=== PATIENT | female | born 1985 | race Caucasian/White ===

== ENCOUNTER 2021-02-06 07:35 | Emergency (ER) | payer OTHER ==
[~2021-02-06] VITALS: Ht 152.4 cm; Wt 81.7 kg
[~2021-02-06 07:35] MED LIST: CIPROFLOXACIN500 M1 PO; CLONAZEPAM0.25 MG PO; HYDROCODON-ACE1 EAC7 PO; NEURONTIN 300300 M1 PO; SENOKOT-S1 TA1 PO; TRAMADOL 50 MG50 MG PO; ZOFRAN ODT4 MG PO; ZOFRAN4 MG PO
[2021-02-06] MEDS ORDERED: CLONAZEPAM 0.50.5 M1 PO (07:53)
[2021-02-06 08:23] LABS: ABSOLUTE EOSINOPHILS 0.1 thou/uL (0.0-0.7); ABSOLUTE LYMPHOCYTES 1.7 thou/uL (0.8-5.3); ABSOLUTE MONOCYTES 0.3 thou/uL (0.0-1.2); ABSOLUTE NEUTROPHILS 1.9 thou/uL (1.6-8.1); EOSINOPHILS 1.5 %; HEMATOCRIT 41.8 % (37.0-47.0); LYMPHOCYTES 42.6 %; MCH 31.9 pg (26.0-34.0); MCHC 33.5 g/dL (28.0-37.0); MCV 95.1 fL (80.0-100.0); NUCLEATED RBCS 0 /100WBC; PLATELET COUNT* 220 thou/uL (150-400); POLYS 47.9 %; RDW-CV 13.8 % (10.5-14.5)
[2021-02-06 08:36] LABS: CALCIUM 8.7 mg/dL (8.5-10.1); CREATININE 0.8 mg/dL (0.6-1.3)
[2021-02-06 08:40] LABS: ALBUMIN 3.5 g/dL (3.4-5.0); TOTAL BILIRUBIN 0.3 mg/dL (<0.1-1.0)
[2021-02-06 10:14] LABS: URINE BILIRUBIN NEGATIVE (Negative); URINE BLOOD 1+ (Negative); URINE CLARITY CLEAR; URINE COLOR YELLOW; URINE GLUCOSE-RANDOM NEGATIVE (Negative); URINE KETONES NEGATIVE (Negative); URINE LEUKOCYTES-REFLEX NEGATIVE (Negative); URINE NITRITE-REFLEX POSITIVE (Negative); URINE PROTEIN NEGATIVE (Negative); URINE SPECIFIC GRAVITY <= 1.005 (1.005-1.030); URINE UROBILINOGEN 0.2 E.U./dl (0.2-1.0)
[2021-02-06 10:19] LABS: SQUAMOUS 0-3 Few /LPF (0-3)
[2021-02-06 10:20] LABS: URINE RBC 0-2 Rare /HPF (0-2); URINE WBC-REFLEX 0-5 Rare /HPF (0-5)
[2021-02-06 10:21] LABS: BACTERIA-REFLEX >30 Many /HPF (None Seen); CASTS None Seen /LPF (None Seen); CRYSTALS None Seen /LPF (None Seen); MUCUS None Seen strn/LPF (None Seen)
[2021-02-06 10:49] VITALS: BP 125/92
== END 2021-02-06 10:50 | disposition home or self-care (01) ==
LOC: M.ERS 07:35
PROVIDERS: Family Medicine
DX: F10.129 Alcohol abuse with intoxication, unspecified (principal); Y90.6 Blood alcohol level of 120-199 mg/100 ml; R11.2 Nausea with vomiting, unspecified; R19.7 Diarrhea, unspecified; R10.84 Generalized abdominal pain; G43.909 Migraine, unspecified, not intractable, without status migrainosus; G89.29 Other chronic pain; F17.210 Nicotine dependence, cigarettes, uncomplicated; Z98.890 Other specified postprocedural states

== ENCOUNTER 2021-07-10 10:50 | Emergency (ER) | payer OTHER ==
[~2021-07-10] VITALS: Ht 149.9 cm; Wt 81.7 kg
[~2021-07-10 10:50] MED LIST changes: +CLONAZEPAM 0.50.5 M1 PO
[2021-07-10 12:03] LABS: ABSOLUTE EOSINOPHILS 0.1 thou/uL (0.0-0.7); ABSOLUTE LYMPHOCYTES 1.3 thou/uL (0.8-5.3); ABSOLUTE MONOCYTES 0.3 thou/uL (0.0-1.2); ABSOLUTE NEUTROPHILS 3.4 thou/uL (1.6-8.1); BASOPHILS 0.7 %; EOSINOPHILS 1.2 %; HEMATOCRIT 41.4 % (37.0-47.0); HEMOGLOBIN 14.1 gm/dL (12.0-15.0); LYMPHOCYTES 25.7 %; MCH 32.7 pg (26.0-34.0); MCHC 34.1 g/dL (28.0-37.0); MCV 95.9 fL (80.0-100.0); MONOCYTES 6.6 %; MPV 8.9 fl. (7.2-11.1); NUCLEATED RBCS 0 /100WBC; PLATELET COUNT* 240 thou/uL (150-400); POLYS 65.8 %; RBC 4.32 mil/uL (4.20-5.00); RDW-CV 14.6 % (10.5-14.5); WBC 5.1 thou/uL (4.0-11.0)
[2021-07-10 12:13] LABS: CALCIUM 8.7 mg/dL (8.5-10.1); CREATININE 0.9 mg/dL (0.6-1.3); POTASSIUM 3.3 mmol/L (3.5-5.1)
[2021-07-10 12:19] LABS: ALBUMIN 3.8 g/dL (3.4-5.0); TOTAL BILIRUBIN 0.6 mg/dL (<0.1-1.0); TOTAL PROTEIN 7.2 g/dL (6.4-8.2)
[2021-07-10] MEDS ORDERED: MEDROLDOSEPACK PO (13:30)
[2021-07-10] MEDS ORDERED: NORFLEX100 MG PO (13:30)
[2021-07-10] MEDS ORDERED: TRAMADOL 50 MG50 MG PO (13:30)
[2021-07-10 13:39] VITALS: BP 134/72
== END 2021-07-10 13:40 | disposition home or self-care (01) ==
LOC: M.ERS 10:50
PROVIDERS: Physician Assistant
DX: M54.2 Cervicalgia (principal); G43.909 Migraine, unspecified, not intractable, without status migrainosus; G89.29 Other chronic pain; M54.9 Dorsalgia, unspecified; Z98.890 Other specified postprocedural states; Z79.899 Other long term (current) drug therapy